=== PATIENT | male | born 1965 | race African-American/Black ===

== ENCOUNTER 2019-11-02 11:56 | Emergency (ER) | payer BC ==
[~2019-11-02] VITALS: Ht 177.8 cm; Wt 99.8 kg
[~2019-11-02 11:56] MED LIST: AMARYL4 MG PO; BYDUREON P2 MG/0.65 SQ; KEFLEX500 MG PO; LIPITOR10 MG PO; LISINOPRIL20 MG PO; METFORMIN HCL500 MG PO; NAPROSYN500 MG PO; NORVASC10 MG PO
[2019-11-02 13:44] LABS: ABSOLUTE NEUTROPHILS 4.7 thou/uL (1.4-8.2); BASOPHILS 0.7 % (0.0-2.0); EOSINOPHILS 1.6 % (0.0-3.0); HEMATOCRIT 40.3 % (42.0-52.0); HEMOGLOBIN 12.6 gm/dL (14.0-18.0); MCH 25.2 pg (26.0-34.0); MCHC 31.4 g/dL (28.0-37.0); MCV 80.3 fL (80.0-100.0); MONOCYTES 9.2 % (1.0-8.0); POLYS 74.5 % (36.0-66.0); RBC 5.01 mil/uL (4.50-6.00); RDW 15.4 % (10.5-14.5); WBC 6.3 thou/uL (4.0-11.0)
[2019-11-02 14:18] LABS: PLATELET COUNT 262 thou/uL (150-400); PLATELET ESTIMATE NORMAL
[2019-11-02 14:28] LABS: CALCIUM 9.7 mg/dL (8.5-10.1); CREATININE 1.7 mg/dL (0.7-1.3)
[2019-11-02 14:33] LABS: ALBUMIN 3.1 g/dL (3.4-5.0); TOTAL BILIRUBIN 0.4 mg/dL (<0.1-1.0); TOTAL PROTEIN 8.9 g/dL (6.4-8.2); URIC ACID* 9.6 mg/dL (2.6-7.2)
[2019-11-02] MEDS ORDERED: NORCO 5-325 TA1 EAC1 PO (14:56)
[2019-11-02] MEDS ORDERED: COLCHICINE0.6 MG PO (14:56)
[2019-11-02 15:07] VITALS: BP 174/112
== END 2019-11-02 15:17 | disposition home or self-care (01) ==
LOC: ER 11:56
PROVIDERS: Physician Assistant
DX: M10.9 Gout, unspecified (principal); N17.9 Acute kidney failure, unspecified; I10 Essential (primary) hypertension; E78.00 Pure hypercholesterolemia, unspecified; E11.9 Type 2 diabetes mellitus without complications